=== PATIENT | female | born 1995 | race Caucasian/White ===

== ENCOUNTER 2016-11-28 18:35 | Emergency (ER) | payer MEDICAID ==
[~2016-11-28] VITALS: Ht 175.3 cm; Wt 90.0 kg
[~2016-11-28 18:35] MED LIST: CLIN1CAP6 PO; IBUP800T23 PO
[2016-11-28 18:37] VITALS: BP 155/82; PULSE 108; RESP 20; TEMP 97.8; O2SAT 100
== END 2016-11-28 19:52 | disposition left against medical advice (07) ==
LOC: NED 18:35
DX: Z02.89 Encounter for other administrative examinations (principal); Z53.21 Procedure and treatment not carried out due to patient leaving prior to being seen by health care provider
CPT/HCPCS: 99281

== ENCOUNTER 2017-07-09 08:05 | Emergency (ER) | payer SELFPAY ==
[~2017-07-09] VITALS: Ht 175.3 cm; Wt 95.0 kg
[2017-07-09 08:07] VITALS: BP 133/81; PULSE 84; RESP 20; TEMP 97.8; O2SAT 100
[2017-07-09] MEDS ORDERED: IBUP200C PO (08:15)
--- NOTE | 2017-07-09 08:28 | PD ---
HPI Chief Complaint: Oral / Dental Pain or Problem Time Seen by Provider: 08:24 Travel History International Travel<30 days: No Contact w/Intl Traveler<30days: No Traveled to known affect area: No History of Present Illness HPI Patient comes in complaining of right upper dental pain ongoing for a few days. Denies any radiation of the pain. Pain is throbbing like in nature. Patient reports associated headache. Denies any fevers, nausea, vomiting, chest pain or shortness breath, neck pain, numbness or tingling anywhere, or . Patient has been using ibuprofen and oral gel for symptomatic relief. Pain is worse with eating. PFSH Past Medical History Diminished Hearing: No Genitourinary: Yes (UTIS) Kidney Stones: Yes Reproductive: Yes (ENDOMETRIOSIS) ?: Not LMP: 06/22/17 : 1 Para: 1 Social History Alcohol Use: No Tobacco Use: Yes (3-4 CIGS PER DAY ) Substance Use: No Allergies-Medications (Allergen,Severity, Reaction): Coded Allergies: Sulfa (Sulfonamide Antibiotics) (Verified Allergy, Severe, Rash, 07/09/17) amoxicillin (Verified Allergy, Severe, Hives, 07/09/17) Reported Meds & Prescriptions Reported Meds & Active Scripts Active Naprosyn (Naproxen) 500 Mg Tab 500 Mg PO Q12HR PRN Clindamycin (Clindamycin HCl) 150 Mg Cap 2 Cap PO Q6H 10 Days Reported Ibuprofen 200 Mg Cap 200 Mg PO Q4H PRN Review of Systems Except as stated in HPI: all other systems reviewed are Neg Physical Exam Narrative GENERAL: Well-developed, overly nourished, in no acute distress, and non-ill appearing. SKIN: Focused skin assessment warm and dry. HEAD: Atraumatic. Normocephalic. EYES: Pupils equal and round. EOMI. No scleral icterus. No injection or drainage. ENT: No nasal bleeding or discharge. Mucous membranes pink and moist. Poor dentition with no visible palpable abscess. Floor the mouth, some submandibular , submental are all soft palpation. NECK: Trachea midline. No cervical lymphadenopathy. Supple. No nuclear rigidity. RESPIRATORY: No accessory muscle use. No respiratory distress. MUSCULOSKELETAL: No obvious deformities. No clubbing. No cyanosis. No edema. Full range of motion. NEUROLOGICAL: Awake and alert. No obvious cranial nerve deficits. Motor grossly within normal limits. Normal speech. PSYCHIATRIC: Appropriate mood and affect; insight and judgment normal. Data Data Last Documented VS Vital Signs Date Time Temp Pulse Resp B/P (MAP) Pulse Ox O2 Delivery O2 Flow Rate FiO2 07/09/17 09:05 07/09/17 08:07 97.8 84 20 100 Room Air MDM Medical Decision Making Medical Screen Exam Complete: Yes Emergency Medical Condition: Yes Differential Diagnosis Dental abscess, dental infection, dentalgia, other Narrative Course The patient presented with dental pain. There is no fever. There is no significant facial swelling or evidence of cellulitis. There is poor dentition but no evidence of drainable abscess at this time. There is no evidence of significant deep or invading abscess at this time. The patient will be placed on antibiotics and pain medication. The patient was instructed to follow up with a dentist. The patient was given the dental referral sheet. Warnings were discussed with the patient regarding worsening of infection. The patient is to return if pain worsens, develops progressive swelling or facial redness or fever. The patient agrees with plan. Patient in no obvious distress upon re-evaluation. Patient was asked if they wanted to speak to my attending, which the patient did not wish to do at this time. Any questions/concerns in reference to patient diagnosis/condition discussed and clarified prior to patient's discharge. Reinforced sheer importance of close follow up with patient's primary physician or primary care clinic and dentist. Instructed patient to return to ED immediately, if symptoms return/worsen. Pt showed understanding of above instructions. Further instructions and recommendations were detailed in discharge paperwork. Pt ambulated without difficulty out of ED at discharge. Diagnosis Primary Impression: Infected dental carries Patient Instructions: Dental Abscess (ED), Dental Caries (DC), General Instructions Additional Instructions: Follow-up with your primary care physician and dentist as soon as possible. Rinse mouth with warm salt water gargles. Take all medication as prescribed. Return to the emergency department if symptoms get worse. Med/Other Pt SpecificInfo: Prescription(s) given Scripts Naproxen (Naprosyn) 500 Mg Tab 500 MG PO Q12HR Y for PAIN SCALE 1 TO 10, #14 TAB 0 Refills Prov: Phuc Orta MD 07/09/17 Clindamycin (Clindamycin) 150 Mg Cap 2 CAP PO Q6H for Infection for 10 Days, #80 CAP 0 Refills Prov: Phuc Orta MD 07/09/17 Disposition: 01 DISCHARGE HOME Condition: Frederick Lindsey Jul 09, 2017 08:28
[2017-07-09] MEDS ORDERED: NAPR500 PO (08:29)
[2017-07-09] MEDS ORDERED: CLIN1CAP5 PO (08:29)
== END 2017-07-09 14:12 | disposition home or self-care (01) ==
LOC: EDTENT 08:05
DX: K02.9 Dental caries, unspecified (principal); K04.7 Periapical abscess without sinus
CPT/HCPCS: 99283